=== PATIENT | male | born 1955 | race Two or more races ===

== ENCOUNTER 2019-03-13 08:56 | Emergency (ER) | payer MEDICAID ==
[~2019-03-13] VITALS: Ht 165.1 cm; Wt 90.3 kg
[2019-03-13] MEDS ORDERED: IV NS 0.9% 1,000 ML BAG IV ONE (09:00)
--- NOTE | 2019-03-13 09:05 | NUR ---
[id number], FROM [facility], HAD SEIZURE FOR 20 MINS, NO INJURY. SEIZURE PRECAUTION [id number], SIDERAILS PADDED. PATIENT POST-ICTAL. EYES OPEN, NON-VERBAL, UNABLE TO ANSWER QUESTIONS AT THIS TIME. UNSURE OF BASELINE MENTATION. CHANGED PATIENT INTO GOWN, ATTACHED TO THE CAN OPERATOR. VSS AT THIS TIME.
[2019-03-13] MEDS ORDERED: LORAZEPAM INJ 2 MG/ML VIAL ONE (09:13)
--- NOTE | 2019-03-13 09:15 | NUR ---
PT ACTIVELY SEIZING, ERMD AWARE. ATIVAN 2MG IVP GIVEN PER ERMD VERBAL ORDER.
[2019-03-13 09:19] LABS: BASOPHILS % (AUTO) 0.3 % (0.0-2.0); EOSINOPHILS % (AUTO) 0.9 % (0.0-6.0); HEMATOCRIT 50 % (39-51); HEMOGLOBIN 17.3 g/dL (13.5-17.5); LYMPHOCYTES # (AUTO) 1.5 /CMM (0.8-4.8); LYMPHOCYTES % (AUTO) 16.8 % (20.0-44.0); MEAN CORPUSCULAR HGB CONC 35 g/dl (31.0-36.0); MEAN CORPUSCULAR VOLUME 97 fL (80-96); MONOCYTES # (AUTO) 0.6 /CMM (0.1-1.30); MONOCYTES % (AUTO) 7.2 % (2.0-12.0); NEUTROPHILS # (AUTO) 6.5 /CMM (1.8-8.9); NEUTROPHILS % (AUTO) 74.8 % (43.0-81.0); PLATELET COUNT (AUTO) 146 /CMM (150-450); RED BLOOD CELL COUNT(AUTO) 5.19 MIL/uL (4.5-6.0); WHITE BLOOD COUNT (AUTO) 8.7 K/uL (4.3-11.0)
[2019-03-13 09:25] LABS: CALCIUM, SERUM 8.9 mg/dL (8.5-10.1); CARBON DIOXIDE 26 mmol/L (21-32); CHLORIDE 105 mmol/L (98-107); CREATININE 1.1 mg/dL (0.6-1.3); GLUCOSE 150 mg/dL (74-106); POTASSIUM 3.6 mmol/L (3.5-5.1); SODIUM SERUM 141 mmol/L (136-145); UREA NITROGEN, BLOOD 11 mg/dL (7-18)
[2019-03-13] MEDS ORDERED: LORAZEPAM INJ 2 MG/ML VIAL IV ONE (09:30)
[2019-03-13 09:31] LABS: ALANINE AMINOTRANSFERASE 66 U/L (12-78); ALBUMIN 3.4 g/dL (3.4-5.0); ALCOHOL, BLOOD < 3 mg/dL (0-0); ALKALINE PHOSPHATASE 157 U/L (46-116); ASPARTATE AMINOTRANSFERASE 53 U/L (15-37); BILIRUBIN,DIRECT 0.2 mg/dL (0.0-0.2); BILIRUBIN,TOTAL 0.7 mg/dL (0.2-1.0); TOTAL PROTEIN, SERUM 8.5 g/dL (6.4-8.2)
--- NOTE | 2019-03-13 09:38 | NUR ---
patient came back from CT.
--- NOTE | 2019-03-13 09:56 | NUR ---
Patient resting, no distress noted, vitals stable. Responsive to stimuli.
[2019-03-13] MEDS ORDERED: LEVETIRACETAM (500MG) 1,000 MG in IV NS 0.9% 100 ML IV SCH (10:00)
--- NOTE | 2019-03-13 11:27 | NUR ---
[facility] TRANSPORTATION ARRANGED TO [address] [place] [id number] ETA: 1230
--- NOTE | 2019-03-13 12:57 | NUR ---
PATIENT RESPONSIVE TO VERBAL AND TACTILE STIMULI. VITALS STABLE. NO DISTRESS NOTED. NO SHORTNESS OF BREATH. ON O2 AT 3LPM VIA NC. NEEDS ATTENDED. REPORT GIVEN TO CHANG AT BOARD AND CARE, AND TO SILVER WRAPPER. Patient discharged to board and care in stable condition. Written and verbal after care instructions given to EMT and verbalizes understanding of instruction.
[2019-03-13 12:58] VITALS: BP 143/73
[2019-03-14] MEDS ORDERED: LEVE1000 PO (20:35)
[2019-03-14] MEDS ORDERED: PHEN100C4 PO (20:35)
[2019-03-14] MEDS ORDERED: CLON0.5T12 PO (20:35)
[2019-03-14] MEDS ORDERED: GABA-534 PO (20:35)
[2019-03-14] MEDS ORDERED: ROSU5TAB PO (20:35)
[2019-03-14] MEDS ORDERED: CHOL200026 PO (20:35)
[2019-03-14] MEDS ORDERED: MULT-1201 PO (20:35)
[2019-03-14] MEDS ORDERED: LEVETIRACETAM (500MG) 500 MG/5 ML VIAL IV ONE (22:50)
== END 2019-03-13 12:59 | disposition home or self-care (01) ==
LOC: ER 09:00
DX: G40.909 Epilepsy, unspecified, not intractable, without status epilepticus (principal); R00.0 Tachycardia, unspecified
CPT/HCPCS: 36415; 70450; 71045; 80048; 80076; 80305; 80307; 82962; 85025; 85730; 93005; 96365; 96375; 99284; J1953; J2060; J7030 ×2; G0480

== ENCOUNTER 2019-03-14 16:41 | Inpatient (IN) | payer MEDICAID ==
[~2019-03-14] VITALS: Ht 165.1 cm; Wt 90.0 kg
--- NOTE | 2019-03-14 16:45 | NUR ---
BIB FROM [facility], "BREATHING PATTERN IS DIFFERENT" PER STAFF SEEN HERE YESTERDAY FOR SZ. PATIENT ATTACHED TO THE MONITOR. NO DISTRESS NOTED. BREATHING EVEN AND UNLABORED, NO SOB NOTED, ON O2 AT 2LPM VIA NC WITH SPO2 OF 96%. CHANGED INTO GOWN.
[2019-03-14 17:16] LABS: BASOPHILS # (AUTO) 0.1 /CMM (0.0-0.2); BASOPHILS % (AUTO) 0.8 % (0.0-2.0); EOSINOPHILS % (AUTO) 2.1 % (0.0-6.0); HEMATOCRIT 47 % (39-51); HEMOGLOBIN 16.5 g/dL (13.5-17.5); LYMPHOCYTES # (AUTO) 2.1 /CMM (0.8-4.8); LYMPHOCYTES % (AUTO) 24.5 % (20.0-44.0); MEAN CORPUSCULAR HGB CONC 35 g/dl (31.0-36.0); MEAN CORPUSCULAR VOLUME 97 fL (80-96); MONOCYTES # (AUTO) 0.7 /CMM (0.1-1.30); MONOCYTES % (AUTO) 7.8 % (2.0-12.0); NEUTROPHILS # (AUTO) 5.6 /CMM (1.8-8.9); NEUTROPHILS % (AUTO) 64.8 % (43.0-81.0); PLATELET COUNT (AUTO) 145 /CMM (150-450); WHITE BLOOD COUNT (AUTO) 8.7 K/uL (4.3-11.0)
[2019-03-14 17:28] LABS: CALCIUM, SERUM 8.7 mg/dL (8.5-10.1); CARBON DIOXIDE 26 mmol/L (21-32); CHLORIDE 104 mmol/L (98-107); CREATININE 0.9 mg/dL (0.6-1.3); GLUCOSE 138 mg/dL (74-106); POTASSIUM 3.2 mmol/L (3.5-5.1); SODIUM SERUM 140 mmol/L (136-145); UREA NITROGEN, BLOOD 9 mg/dL (7-18)
[2019-03-14 17:30] LABS: APPEARANCE,URINE Clear (CLEAR); BILIRUBIN,URINE SMALL (NEGATIVE); BLOOD, URINE Trace-intact Ery/uL (NEGATIVE); COLOR,URINE Yellow (YELLOW); KETONES,URINE 15 (NEGATIVE); LEUKOCYTE ESTERASE ,URINE Negative (NEGATIVE); NITRITE, URINE Negative (NEGATIVE); PH,URINE 6.5 (5.0-8.0); PROTEIN,URINE 30 mg/dl (NEGATIVE); UGLUCOSE Negative (NEGATIVE)
[2019-03-14 17:40] LABS: BACTERIA,URINE Rare /HPF (None Seen); RBC,URINE 2-3/HPF /HPF (0-2); SQUAMOUS EPITHELIAL CELL,UR Rare /HPF (None Seen); URINE AMORPHOUS URATE Few /HPF (None Seen); WBC,URINE 0-2 /HPF (0-3)
[2019-03-14 17:42] LABS: ALANINE AMINOTRANSFERASE 85 U/L (12-78); ALBUMIN 3.1 g/dL (3.4-5.0); ALCOHOL, BLOOD < 5 mg/dL (0-0); ALKALINE PHOSPHATASE 141 U/L (46-116); ASPARTATE AMINOTRANSFERASE 67 U/L (15-37); BILIRUBIN,DIRECT 0.2 mg/dL (0.0-0.2); BILIRUBIN,TOTAL 0.6 mg/dL (0.2-1.0); TOTAL PROTEIN, SERUM 8.3 g/dL (6.4-8.2)
[2019-03-14 18:17] LABS: SERUM AMMONIA 42 umol/L (11-32)
[2019-03-14 18:19] LABS: THYROID STIMULATING HORMONE 3.335 uIU/mL (0.358-3.74)
--- NOTE | 2019-03-14 18:36 | NUR ---
CALLED [facility] AND SPOKE WITH CHANG, PER CHANG, PATIENT'S BASELINE WAS HE USED TO BE VERBALLY RESPONSIVE, ABLE TO STAND AND TRANSFER HIMSELF TO A WHEELCHAIR, BUT UNABLE TO AMBULATE.
--- NOTE | 2019-03-14 18:40 | NUR ---
REQUESTED MEDSURG BED FROM NURSING SUP
--- NOTE | 2019-03-14 19:05 | NUR ---
ENDORSED TO VIVIAN PERALES FOR ALEXA.
--- NOTE | 2019-03-14 19:17 | NUR ---
RESTING IN BED AWAKE. NON- VERBAL , UNABLE TO MAKE HIS NEEDS KNOWN, NO S/S OF DISTRESS. WILL CONT TO MONITOR ,
--- NOTE | 2019-03-14 19:31 | NUR ---
117-2 [facility]
--- NOTE | 2019-03-14 19:54 | NUR ---
REPORT GIVEN TO INDRE ON FIRST FLOOR
[2019-03-14 20:00] VITALS: BP 132/76
[2019-03-14 20:15] VITALS: BP 132/76
--- NOTE | 2019-03-14 20:15 | NUR ---
PT WAS TRANSFERRED TO [facility] IN STABLE CONDITION
--- NOTE | 2019-03-14 20:15 | NUR ---
MS/RN NOTES 63 YEARS OLD MALE PATIENT ADMITTED TO THE UNIT WITH THE DX OF ACUTE ENCEPHALOPATHY. NO S/S OF ACUTE DISTRESS NOTED UPON ADMISSION. RESPIRATION EVEN AND UNLABORED. NO SHORTNESS OF BREATH NOTED. PATIENT ALERT AND ORIENTED X1. NO S/S OF PAIN OR DISCOMFORT NOTED AT THIS TIME. PATIENT ON O2 2LPM VIA NASAL CANULA, SATURATING 95%. BODY ASSESSMENT DONE PROTOCOL. RIGHT FOREARM 20 GAUGE NOTED WITH NO S/S OF INFECTION, INFILTRATION. FLUSHED WITH NORMAL SALINE AT THIS TIME. HOB KEPT ELEVATED. SAFETY MAINTAINED, BED AT THE LOWEST LOCKED, POSITION, CALL LIGHT WITHIN REACH. WILL CONTINUE TO MONITOR PATIENT PER PLAN OF CARE.
[2019-03-14] MEDS ORDERED: HYDROCODONE/APAP 5/325MG 1 EACH TABLET PO PRN (20:30)
[2019-03-14] MEDS ORDERED: ACETAMINOPHEN 325 MG TABLET PO PRN (20:30)
[2019-03-14] MEDS ORDERED: ZOLPIDEM TARTRATE 5 MG TABLET PO PRN (20:30)
[2019-03-14] MEDS ORDERED: MAGNESIUM HYDROXIDE 30 ML UDC PO PRN (20:30)
[2019-03-14] MEDS ORDERED: MAG HYDROX/AL HYDROX/SIMETH 30 ML UDC PO PRN (20:30)
[2019-03-14] MEDS ORDERED: POTASSIUM CHLORIDE 20 MEQ TAB.PRT.SR PO ONE (20:30)
[2019-03-14] MEDS ORDERED: Z GUARD REMEDY 2 OZ OINT TP PRN (20:30)
[2019-03-14] MEDS ORDERED: ONDANSETRON HCL/PF 4 MG/2 ML VIAL IVP PRN (20:30)
[2019-03-14] MEDS ORDERED: CLON0.5T12 PO (20:35)
[2019-03-14] MEDS ORDERED: MULT-1201 PO (20:35)
[2019-03-14] MEDS ORDERED: GABA-534 PO (20:35)
[2019-03-14] MEDS ORDERED: CHOL200026 PO (20:35)
[2019-03-14] MEDS ORDERED: ROSU5TAB PO (20:35)
[2019-03-14] MEDS ORDERED: LEVE1000 PO (20:35)
[2019-03-14] MEDS ORDERED: PHEN100C4 PO (20:35)
[2019-03-14] MEDS ORDERED: LEVETIRACETAM (250 MG) 250 MG TABLET PO SCH (21:00)
--- NOTE | 2019-03-14 21:02 | NUR ---
CALLED DR BARNETT TO RE-VERIFY THE PO ORDERED, AND CHANGED THEM TO IV ROUTE ORDERED, BECAUSE PATIENT IS NPO AT THIS TIME. PER DR BARNETT, SHE WILL BE COMING SOON TO ASSESS THE PATIENT
[2019-03-14] MEDS ORDERED: POTASSIUM CHLORIDE 10 MEQ/50 ML PREMIXED IVPB FOR PERIPHERAL LINE IV ONE ×2 (21:30→22:30)
[2019-03-14] MEDS: LEVETIRACETAM (500MG) 1,000 MG in IV NS 0.9% 100 ML IV SCH (21:30)
--- NOTE | 2019-03-14 21:30 | NUR ---
PATIENT SEEN AND EXAMINED BY DR BARNETT AT THIS TIME WITH NNO.
[2019-03-14] MEDS ORDERED: ATORVASTATIN 10 MG TABLET PO SCH (22:00)
[2019-03-14] MEDS ORDERED: PHENYTOIN SUSP UDC 100 MG/4 ML UDC PO SCH (22:00)
[2019-03-14] MEDS ORDERED: PHENYTOIN EXTENDED RELEASE 100 MG CAPSULE PO SCH (22:00)
[2019-03-14] MEDS: IV D5/0.45 NACL 1,000 ML IV PRN (22:35)
[2019-03-15] VITALS: BP 132/76
[2019-03-15 04:00] VITALS: BP 127/80
--- NOTE | 2019-03-15 06:57 | NUR ---
MS/RN NOTES: PATIENT IN BED, RESTING COMFORTABLY AT THIS TIME. NO S/S OF ACUTE DISTRESS NOTED, RESPIRATION EVEN AND UNLABORED. NO SOB NOTED. NO S/S OF PAIN NOTED AT THIS TIME. ALL DUE MEDS GIVEN ORDERED. PATIENT TOLERATED WELL. SAFETY MAINTAINED, BED AT THE LOWEST LOCKED POSITION, WITH SIDE RAILS UP X2. CALL LIGHT WITHIN REACH. WILL ENDORSE TO AM SHIFT NURSE FOR ALEXA.
[2019-03-15 07:00] LABS: PHENYTOIN (DILANTIN) 2.7 ug/ml (10.0-20.0)
[2019-03-15 07:02] LABS: CALCIUM, SERUM 8.3 mg/dL (8.5-10.1); CREATININE 0.8 mg/dL (0.6-1.3); PHOSPHORUS 2.6 mg/dL (2.5-4.9); POTASSIUM 3.6 mmol/L (3.5-5.1)
[2019-03-15 07:04] LABS: BASOPHILS % (AUTO) 0.6 % (0.0-2.0); EOSINOPHILS % (AUTO) 2.6 % (0.0-6.0); HEMATOCRIT 46 % (39-51); LYMPHOCYTES # (AUTO) 1.6 /CMM (0.8-4.8); LYMPHOCYTES % (AUTO) 22.2 % (20.0-44.0); MEAN CORPUSCULAR HGB CONC 35 g/dl (31.0-36.0); MEAN CORPUSCULAR VOLUME 96 fL (80-96); MONOCYTES # (AUTO) 0.5 /CMM (0.1-1.30); MONOCYTES % (AUTO) 7.1 % (2.0-12.0); NEUTROPHILS % (AUTO) 67.5 % (43.0-81.0); PLATELET COUNT (AUTO) 132 /CMM (150-450); RED BLOOD CELL COUNT(AUTO) 4.81 MIL/uL (4.5-6.0); WHITE BLOOD COUNT (AUTO) 7.3 K/uL (4.3-11.0)
[2019-03-15 07:15] LABS: THYROID STIMULATING HORMONE 3.402 uIU/mL (0.358-3.74)
[2019-03-15] MEDS ORDERED: PANTOPRAZOLE 40 MG TABLET.DR PO SCH (07:30)
--- NOTE | 2019-03-15 07:38 | NUR ---
RN OPENING NOTE PT WAS RECEIVED IN BED AT LOWEST AND LOCKED POSITION WITH SIDE RAILS UP X2, AWAKE AND ALERT BUT NONVERBAL, CURRENTLY NPO, IV IS PATENT AND INTACT WITH IVF RUNNING, AWAITNG NEURO CONSULT, SAFETY PRECAUTIONS IN PLACE, CALL LIGHT WITHIN REACH, WILL MONITOR ACCORDINGLY
[2019-03-15] MEDS: FAMOTIDINE/PF INJ 20 MG/2 ML VIAL IV SCH (07:50)
[2019-03-15] MEDS: LEVETIRACETAM (500MG) 1,000 MG in IV NS 0.9% 100 ML IV SCH ×2 (08:00→20:53)
[2019-03-15 08:32] VITALS: BP 131/98
[2019-03-15] MEDS: IV D5/0.45 NACL 1,000 ML IV PRN ×2 (09:15→23:15)
[2019-03-15 09:30] LABS: ALBUMIN 3.1 g/dL (3.4-5.0); BILIRUBIN,DIRECT 0.1 mg/dL (0.0-0.2); BILIRUBIN,TOTAL 0.7 mg/dL (0.2-1.0); TOTAL PROTEIN, SERUM 7.9 g/dL (6.4-8.2)
[2019-03-15] MEDS: TOBRAMYCIN/DEXAMETH OPHTH DORPS 2.5 ML BOTTLE EACHEYE SCH ×3 (10:00→17:09)
[2019-03-15] MEDS ORDERED: LACTULOSE 10 G/15 ML UDC (PYXIS) PO PRN (10:00)
[2019-03-15] MEDS: LORAZEPAM INJ 2 MG/ML VIAL IV PRN (13:08)
--- NOTE | 2019-03-15 14:36 | NUR ---
RN NOTE PHARMACY CALLED AT THIS TIME REGARDING TOBRAMYCIN EYE DROPS, AWAITING FOR MED TO BE BROUGHT TO THE FLOOR
[2019-03-15 16:14] VITALS: BP 129/77
--- NOTE | 2019-03-15 17:18 | NUR ---
RN NOTE PHARMACY CALLED REGARDING TOPRADEX EYE DROPS, INFORMED THAT THEY DO NOT HAVE THEM IN STOCK BUT THAT THEY DO HAVE PLAIN TOBRAMYCIN AND GENTAMYCIN EYE DROPS. WAS PAGED AND MADE AWARE AND ORDERED JUST REGULAR TOBRAMYCIN EYE DROPS AT THIS TIME. PHARMACY INFORMED OF CHANGE
[2019-03-15] MEDS: TOBRAMYCIN OPHTH 5ML 5 ML BOTTLE EACHEYE SCH ×2 (17:19→20:54)
--- NOTE | 2019-03-15 18:30 | NUR ---
RN CLOSING NOTE PT IN BED AT LOWEST AND LOCKED POSITION WITH SIDE RAILS UP X2, AWAKE AND ALERT BUT TRIES TO MOUTH WORDS, CURRENTLY NPO, IV IS PATENT AND INTACT WITH IVF RUNNING, SAFETY PRECAUTIONS IN PLACE, CALL LIGHT WITHIN REACH, ALL NEEDS ATTENDED TO, WILL ENDORSE TO NIGHT RN FOR ALEXA
--- NOTE | 2019-03-15 19:20 | NUR ---
MS RN NOTE: RECEIVED PT ON BED AWAKE, ABLE TO ANSWER YES OR NO QUESTIONS BY NODDING. NO APPARENT DISTRESS NOTED. NO FACIAL GRIMACING OR ANY SIGNS OF PAIN NOTED. ON 2LPM NASAL CANNULA, NO SOB NOTED. IV ON RIGHT HAND #24 AND RIGHT FOREARM #20 INTACT AND PATENT, FLUSHING WELL. KEPT CLEAN, DRY AND COMFORTABLE. SAFETY AND FALL PRECAUTIONS OBSERVED AND MAINTAINED. WILL CONTINUE TO MONITOR PT.
[2019-03-15] MEDS ORDERED: PHENYTOIN SODIUM IV 50 MG/ML VIAL IV SCH (19:30)
[2019-03-15 20:00] VITALS: BP 136/84
--- NOTE | 2019-03-15 20:49 | NUR ---
MS RN NOTE: CLARIFIED TO NEUROLOGIST THE NEW MED ORDER (DILANTIN 1000MG IV), PER NEURO DILANTIN LEVEL IS LOW AND WANTED TO BE ON THERAPEUTIC LEVEL. PHARMACY AWARE AND WAS TOLD OK TO GIVE DILANTIN AND KEPPRA. NO SEIZURE NOTED AT THIS TIME. WILL CONTINUE TO MONITOR PT.
[2019-03-15] MEDS ORDERED: phenytoin SODIUM IV 1,000 MG in IV NS 0.9% 100 ML IV ONE (21:00)
[2019-03-16] MEDS: TOBRAMYCIN OPHTH 5ML 5 ML BOTTLE EACHEYE SCH ×6 (01:23→21:58)
[2019-03-16 04:00] VITALS: BP 121/71
[2019-03-16] MEDS: PHENYTOIN EXTENDED RELEASE 100 MG CAPSULE PO SCH ×3 (04:55→12:40)
--- NOTE | 2019-03-16 06:52 | NUR ---
MS RN NOTE: NO CHANGES NOTED THROUGHOUT THE SHIFT. NO APPARENT DISTRESS NOTED. NO SEIZURES NOTED. NO FACIAL GRIMACING OR ANY SIGNS OF PAIN NOTED. ON 2LPM NASAL CANNULA, NO SOB NOTED, SATURATING WELL. KEPT CLEAN, DRY AND COMFORTABLE. SAFETY AND FALL PRECAUTIONS OBSERVED AND MAINTAINED. WILL ENDORSE TO DAY SHIFT RN FOR CONTINUITY OF CARE.
--- NOTE | 2019-03-16 07:45 | NUR ---
RN OPENING NOTE RECEIVED REPORT AT BED SIDE. PT IS RESTING COMFORTABLY. AWAKE AND ALERT BUT NONVERBAL. ON NC 2L. NO SOB NOTED. NO SIGN OF RESPIRATORY DISTRESS NOTED AT THIS TIME. NPO. R HAND #24 IV SL, PATENT, INTACT AND FLUSHED WELL. RFA #20 D5 1/2 NS RUNNING AT 75 ML/HR. SAFETY MEASURES IN PLACE. BED AT LOWEST AND LOCKED POSITION WITH SIDE RAILS UP X2, CALL LIGHT WITHIN REACH, WILL MONITOR CLOSELY.
[2019-03-16 08:00] VITALS: BP_SYST 130; BP_SYST 132; BP_DIAS 63; BP_DIAS 67
[2019-03-16] MEDS: FAMOTIDINE/PF INJ 20 MG/2 ML VIAL IV SCH (09:03)
[2019-03-16] MEDS: LEVETIRACETAM (500MG) 1,000 MG in IV NS 0.9% 100 ML IV SCH ×2 (09:43→20:42)
[2019-03-16] MEDS: IV D5/0.45 NACL 1,000 ML IV PRN (14:01)
--- NOTE | 2019-03-16 15:19 | NUR ---
RN NOTE BROTHER AT BEDSIDE, UPDATED ABOUT THE PATIENT'S CONDITION AT THIS TIME. DR FINN ORDERED AN EEG TO BE DONE TODAY. JOINT MACHINE OPERATOR IS AT BEDSIDE AT THIS TIME.
[2019-03-16 16:00] VITALS: BP_SYST 132; BP_SYST 137; BP_DIAS 67; BP_DIAS 76
[2019-03-16] MEDS ORDERED: PHARMACY TO CHANGE PO MEDS TO GT/NG IV PRN (17:30)
--- NOTE | 2019-03-16 18:14 | NUR ---
RN NOTE PER MD, CHANGE ALL PO MEDS TO IV. PHARMACY MADE AWARE. ALL CHANGES HAS BEEN MADE
--- NOTE | 2019-03-16 19:30 | NUR ---
MS RN NOTE: RECEIVED PT ON BED ASLEEP BUT AROUSES EASILY TO VERBAL AND TACTILE STIMULI. NO APPARENT DISTRESS NOTED. NO FACIAL GRIMACING OR ANY SIGNS OF PAIN NOTED. ON 2LPM NASAL CANNULA, NO SOB NOTED. IV ON RIGHT HAND #24 AND RIGHT FOREARM #20 INTACT AND PATENT, FLUSHING WELL. KEPT CLEAN, DRY AND COMFORTABLE. SAFETY AND FALL PRECAUTIONS OBSERVED AND MAINTAINED. WILL CONTINUE TO MONITOR PT.
--- NOTE | 2019-03-16 19:41 | NUR ---
MS RN CLOSING NOTES: PATIENT IN BED, RESTING COMFORTABLY AT THIS TIME. AWAKE, NONVERBAL, A/OX1. NO S/S OF SOB OR ACUTE RESPIRATORY OR CARDIAC DISTRESS NOTED, RESPIRATION EVEN AND UNLABORED. NO S/S OF PAIN NOTED AT THIS TIME. NPO. HAS CHANGED ALL THE PO MEDS TO IV MEDS. SAFETY MAINTAINED, BED AT THE LOWEST LOCKED POSITION, WITH SIDE RAILS UP X2. CALL LIGHT WITHIN REACH. BED ALARM ON. WILL ENDORSE TO AM SHIFT NURSE FOR ALEXA.
[2019-03-16 20:00] VITALS: BP 127/87
[2019-03-16] MEDS: PHENYTOIN SODIUM IV 50 MG/ML VIAL IV SCH (20:42)
[2019-03-17] MEDS: TOBRAMYCIN OPHTH 5ML 5 ML BOTTLE EACHEYE SCH ×6 (01:18→21:26)
[2019-03-17 04:00] VITALS: BP 130/72
[2019-03-17] MEDS: PHENYTOIN SODIUM IV 50 MG/ML VIAL IV SCH ×3 (05:04→21:07)
[2019-03-17] MEDS: IV D5/0.45 NACL 1,000 ML IV PRN ×2 (06:36→21:04)
--- NOTE | 2019-03-17 06:58 | NUR ---
MS RN NOTE: NO CHANGES NOTED THROUGHOUT THE SHIFT. NO ACUTE DISTRESS NOTED. NO SEIZURES NOTED. NO FACIAL GRIMACING OR ANY SIGNS OF PAIN NOTED. ON 2LPM NASAL CANNULA, NO SOB NOTED, SATURATING WELL. KEPT CLEAN, DRY AND COMFORTABLE. SAFETY AND FALL PRECAUTIONS OBSERVED AND MAINTAINED. WILL ENDORSE TO DAY SHIFT RN FOR CONTINUITY OF CARE.
--- NOTE | 2019-03-17 07:05 | NUR ---
MS RN OPENING NOTES RECEIVED PT LYING ON BED.PT IS AWAKE AND NONVERBAL.ON 2LPM O2 VIA NC CONTINUOUSLY.NO SOB AND ACUTE DISTRESS NOTED.IV LINE IS ON RIGHT HAND G24,SL AND RIGHT FA G20 WITH D5 .45%NS IS RUNNING @75ML/HR.SITE IS CLEAN,DRY AND INTACT.NO INFILTRATION NOTED.BED IS IN LOW POSITION AND LOCKED,CALL LIGHT IS WITHIN REACH.WILL CONTINUE TO MONITOR THE PT CLOSELY.
[2019-03-17 08:00] VITALS: BP 110/64
[2019-03-17] MEDS: FAMOTIDINE/PF INJ 20 MG/2 ML VIAL IV SCH (08:22)
[2019-03-17] MEDS: LEVETIRACETAM (500MG) 1,000 MG in IV NS 0.9% 100 ML IV SCH ×2 (09:17→21:17)
[2019-03-17 16:00] VITALS: BP 121/78
--- NOTE | 2019-03-17 19:02 | NUR ---
MS RN CLOSING NOTES PT IS LYING ON BED WITH O2 2LPM VIA NC CONTINUOUSLY.NO SOB AND ACUTE [id number] NOTED.PT IS MORE ALERT AND AWAKE THAN BEFORE.RIGHT HAND G20 IS PRESENT WITH IV FLUIDS RUNNING.ALL DUE MEDS ARE GIVEN.PT IS CLEAN AND DRY.PT IS STILL ON NPO.NO SIGNIFICANT CHANGES NOTED IN THE SHIFT.WILL ENDORSE TO TINNING MACHINE SET UP OPERATOR RN FOR ALEXA AND PENDING SWALLOW EVALUATION.
--- NOTE | 2019-03-17 19:45 | NUR ---
RN OPENING NOTES RECEIVED PATIENT IN BED ASLEEP, EASILY AROUSABLE TO VOICE AND TOUCH. NO SIGNS OF RESPIRATORY DISTRESS NOTED. NO SIGNS OF SHORTNESS OF BREATH NOTED. NO SIGNS OF FACIAL GRIMACING OR SIGNS OF PAIN NOTED. ON 2LPM OXYGEN VIA NASAL CANNULA, RESPIRATIONS EVEN AND UNLABORED. IV SITE ON RIGHT HAND INTACT AND PATENT WITH IVF RUNNING. SAFETY PRECAUTIONS IMPLEMENTED; CALL LIGHT WITHIN REACH, BED LOWEST POSITION, BED LOCKED, SIDE RAILS UP X2. WILL CONTINUE TO MONITOR PATIENT.
[2019-03-18] VITALS: BP 125/77
[2019-03-18] MEDS: TOBRAMYCIN OPHTH 5ML 5 ML BOTTLE EACHEYE SCH ×6 (01:30→21:40)
[2019-03-18] MEDS: PHENYTOIN SODIUM IV 50 MG/ML VIAL IV SCH ×3 (04:53→21:37)
--- NOTE | 2019-03-18 05:59 | NUR ---
RN NOTES PATIENT TRANSFERRED TO ROOM 119-1.
--- NOTE | 2019-03-18 07:01 | NUR ---
RN CLOSING NOTES NO CHANGES NOTED THROUGHOUT THE SHIFT. PATIENT CURRENTLY ASLEEP, EASILY AROUSABLE TO VOICE AND TOUCH. NO RESPIRATORY DISTRESS NOTED. NO SEIZURES NOTED. NO FACIAL GRIMACING, NO SIGNS OF PAIN OR DISCOMFORT NOTED. PATIENT STABLE. ON 2LPM OXYGEN VIA NASAL CANNULA, NO SOB NOTED, SATURATING WELL. PATIENT KEPT CLEAN, DRY, AND COMFORTABLE. SAFETY PRECAUTIONS IMPLEMENTED; CALL LIGHT WITHIN REACH, BED LOWEST POSITION, BED LOCKED, SIDE RAILS UP X2. WILL ENDORSE TO DAY NURSE FOR CONTINUITY OF CARE.
--- NOTE | 2019-03-18 07:35 | NUR ---
MS/RN OPENING NOTES RECEIVED PATIENT IN BED SLEEPING COMFORTABLY. EASILY AROUSABLE TO TACTILE STIMULI. NO PAIN OR ACUTE DISTRESS AT THIS TIME. RESPIRATION EVEN AND UNLABORED. SKIN IS DRY WARM TO TOUCH. ON 2LPM OXYGEN VIA NASAL CANNULA. TOLERATING WELL. IV SITE ON RIGHT HAND INTACT AND PATENT WITH IVF RUNNING. ALL NEEDS ANTICIPATED. CALL LIGHT WITHIN REACHED. SAFETY MAINTAINED. BED LOCKED AND IN LOWEST POSITION. WILL CONTINUE TO MONITOR CLOSELY.
[2019-03-18] MEDS: FAMOTIDINE/PF INJ 20 MG/2 ML VIAL IV SCH (07:54)
[2019-03-18 08:00] VITALS: BP 114/58
[2019-03-18] MEDS: LEVETIRACETAM (500MG) 1,000 MG in IV NS 0.9% 100 ML IV SCH ×2 (09:21→21:37)
[2019-03-18] MEDS: IV D5/0.45 NACL 1,000 ML IV PRN (11:53)
[2019-03-18 16:00] VITALS: BP 131/69
--- NOTE | 2019-03-18 19:05 | NUR ---
MS/RN CLOSING NOTES PATIENT CONTINUES TO REMAIN IN STABLE CONDITION. PROVIDED COMFORT AND SAFETY THROUGHOUT THE SHIFT. NO PAIN OR ACUTE DISTRESS AT THIS TIME. RESPIRATION EVEN AND UNLABORED. ON 2LPM OXYGEN VIA NASAL CANNULA. TOLERATING WELL. IV SITE ON RIGHT HAND INTACT AND PATENT WITH IVF RUNNING. TOLERATING WELL. ALL NEEDS ANTICIPATED. KEPT CLEAN AND DRY. CALL LIGHT WITHIN REACHED. SAFETY MAINTAINED. BED LOCKED AND IN LOWEST POSITION. ENDORSED TO PM NURSE FOR ALEXA.
--- NOTE | 2019-03-18 19:40 | NUR ---
MS RN NOTES, PATIENT IN BED, AWAKE BUT UNABLE TO VERBALIZE NEEDS, BREATHING EVEN AND UNLABORED, NO SOB/ACUTE DISTRESS NOTED AT THIS TIME, ON 2LPM OXYGEN VIA NASAL CANNULA, WITH OPTIMAL 02 SAT LEVEL, RIGHT FORE ARM IV SITE INTACT AND PATENT, IVF INFUSING WELL AND PATENT TOLERATED WELL, NPO UNTIL SWALLOW EVALUATION DONE, KEPT CLEAN AND DRY, CALL LIGHT WITHIN REACHED, ALL SAFETY , MEASURES IN PLACED, BED LOCKED AND IN LOWEST POSITION, WILL CONTINUE TO MONITOR CLOSELY.
[2019-03-18 20:00] VITALS: BP 125/70
[2019-03-19] MEDS: TOBRAMYCIN OPHTH 5ML 5 ML BOTTLE EACHEYE SCH ×6 (00:20→21:26)
[2019-03-19 04:00] VITALS: BP 123/71
[2019-03-19] MEDS: PHENYTOIN SODIUM IV 50 MG/ML VIAL IV SCH ×3 (05:11→22:38)
[2019-03-19] MEDS: IV D5/0.45 NACL 1,000 ML IV PRN ×2 (05:32→21:37)
--- NOTE | 2019-03-19 06:56 | NUR ---
MS RN NOTES, PATIENT IN BED, WITH EYES OPEN, NONVERBAL ALL THE NIGHT BUT ABLE JUST TO VERBALIZED "OK" BREATHING EVEN AND UNLABORED, NO SOB/ACUTE DISTRESS NOTED AT THIS TIME, RIGHT FORE ARM IV SITE INTACT AND PATENT, IVF INFUSING WELL AND PATENT TOLERATED WELL, CONTINUE NPO UNTIL SWALLOW EVALUATION TODAY, NO SIGNIFICANT CHANGE IN CONDITION DURING THE NIGHT, KEPT CLEAN AND DRY, CALL LIGHT WITHIN REACHED, BED LOCKED AND IN LOWEST POSITION, WILL ENDORSE CONTINUITY OF CARE TO ONCOMING NURSE.
--- NOTE | 2019-03-19 07:50 | NUR ---
MS RN OPENING NOTES RECEIVED REPORT FROM [facility] SHIFT NURSE, PT ASLEEP IN BED, ON 02 VIA NC 2L/MIN, TOLERATING WELL, NO SIGNS OF RESPIRATORY DISTRESS NOTED, RESPIRATIONS EASY AND UNLABORED. SEIZURE PRECAUTIONS IN PLACE, BED IN LOW POSITION, LOCKED, CALL LIGHT WITHIN REACH. RIGHT FOREARM 20G INFUSING D5 1/2 NS AAT 75ML/HR, NO SIGNS OF INFILTRATION NOTED.
[2019-03-19 08:00] VITALS: BP 136/74
[2019-03-19] MEDS: FAMOTIDINE/PF INJ 20 MG/2 ML VIAL IV SCH (08:06)
[2019-03-19] MEDS: LEVETIRACETAM (500MG) 1,000 MG in IV NS 0.9% 100 ML IV SCH ×2 (08:43→21:26)
--- NOTE | 2019-03-19 09:20 | NUR ---
PT PERFORMED SWALLOW EVALUATION- PT FAILED EVAL.
--- NOTE | 2019-03-19 10:45 | NUR ---
RECEIVED ORDER FROM DR. PHILLIP FOR NG TUBE INSERTION AND FEEDING. ORDER PLACED FOR FNS CONSULT FOR FEEDING TYPE. Addendum: 03/20/19 at 0655 by MARSHALL KENNEY RN correction: received order from dr. vasquez
--- NOTE | 2019-03-19 13:30 | NUR ---
ATTEMPTED TO INSERT NG TUBE, UNSUCCESSFUL. WILL ATTEMPT AT A LATER TIME.
[2019-03-19 16:00] VITALS: BP 137/77
[2019-03-19 18:00] VITALS: BP 137/77
[2019-03-19 20:00] VITALS: BP 148/79
[2019-03-19 20:27] VITALS: BP 148/79
--- NOTE | 2019-03-19 20:46 | NUR ---
RN MS INITIAL NOTES RECEIVED REPORT FROM AM RN, PT AWAKE NONVERBAL, ON 02 VIA NC 2L/MIN, TOLERATING WELL, NO SIGNS OF RESPIRATORY DISTRESS NOTED OR PAIN, ST EVAL DONE, FAIL, FOR NGT PLACEMENT PER AM RN, TRIED PLACEMENT X 2 TIMES, UNSUCCESSFUL, WILL TRY PLACEMENT PT GIVEN BREAK, PENDING GTFEED, ALL CURRENT MED ORDERS TO BE HELD. SEIZURE PRECAUTIONS IN PLACE, BED IN LOW POSITION, LOCKED, CALL LIGHT WITHIN REACH. RIGHT FOREARM 20G INFUSING D5 1/2 NS AAT 75ML/HR, NO SIGNS OF INFILTRATION NOTED.
[2019-03-19] MEDS ORDERED: PHENYTOIN SODIUM IV 50 MG/ML VIAL ONE (22:34)
[2019-03-20] MEDS: TOBRAMYCIN OPHTH 5ML 5 ML BOTTLE EACHEYE SCH ×6 (01:32→21:19)
[2019-03-20 04:00] VITALS: BP 145/73
[2019-03-20 04:26] VITALS: BP 145/73
[2019-03-20] MEDS ORDERED: PHENYTOIN SODIUM IV 50 MG/ML VIAL ONE (05:24)
[2019-03-20] MEDS: PHENYTOIN SODIUM IV 50 MG/ML VIAL IV SCH ×3 (06:02→21:18)
--- NOTE | 2019-03-20 06:49 | NUR ---
RN MS CLOSING NOTES ENDORSED REPORT FROM AM RN, PT AWAKE NONVERBAL, ON 02 VIA NC 2L/MIN, TOLERATING WELL, NO SIGNS OF RESPIRATORY DISTRESS NOTED OR PAIN, ST EVAL DONE, FAIL, NGT PLACEMENT DONE, XRAY CHEST DONE TUBE IN PLACE, CHARGE TIM AWARE, OKAY TO USE NGT GTFEEDING STARTED, HOB ELEVATED FOR ASP' PRECAUTION . SEIZURE PRECAUTIONS IN PLACE, BED IN LOW POSITION, LOCKED, CALL LIGHT WITHIN REACH. RIGHT FOREARM 20G INFUSING D5 1/2 NS AT 75ML/HR, INFILTRATED, DC LINE, LT WRIST #20G INSERTED, WELL SECURED .
--- NOTE | 2019-03-20 07:30 | NUR ---
MS RN OPENING NOTES RECEIVED REPORT FROM PM NURSE.PT AWAKE NONVERBAL,MAKING SOUNDS. ON 02 VIA NC 2L/MIN, TOLERATING WELL, NO SIGNS OF RESPIRATORY DISTRESS NOTED OR PAIN.OV LINE INTACT AND PATENT WITH IVF ONGOING.SEIZURE PRECAUTIONS IN PLACE, BED IN LOW POSITION, LOCKED, CALL LIGHT WITHIN REACH. BED ALARM ON WITH BILATERAL SOFT RESTRAINT.PATIENT TRYING TO PULL PUT NGTUBE AND REMOVING LINENS AND TUBES.WILL CONTINUE TO MONITOR.
[2019-03-20 08:00] VITALS: BP 129/75
[2019-03-20] MEDS: FAMOTIDINE/PF INJ 20 MG/2 ML VIAL IV SCH (08:08)
[2019-03-20] MEDS: LEVETIRACETAM (500MG) 1,000 MG in IV NS 0.9% 100 ML IV SCH (08:54)
[2019-03-20 12:19] LABS: BASOPHILS % (AUTO) 0.5 % (0.0-2.0); EOSINOPHILS % (AUTO) 4.9 % (0.0-6.0); HEMATOCRIT 47 % (39-51); HEMOGLOBIN 16.2 g/dL (13.5-17.5); LYMPHOCYTES # (AUTO) 1.4 /CMM (0.8-4.8); LYMPHOCYTES % (AUTO) 18.7 % (20.0-44.0); MEAN CORPUSCULAR HGB CONC 35 g/dl (31.0-36.0); MEAN CORPUSCULAR VOLUME 95 fL (80-96); MONOCYTES # (AUTO) 0.5 /CMM (0.1-1.30); MONOCYTES % (AUTO) 6.6 % (2.0-12.0); NEUTROPHILS # (AUTO) 5.1 /CMM (1.8-8.9); NEUTROPHILS % (AUTO) 69.3 % (43.0-81.0); PLATELET COUNT (AUTO) 166 /CMM (150-450); RED BLOOD CELL COUNT(AUTO) 4.93 MIL/uL (4.5-6.0); WHITE BLOOD COUNT (AUTO) 7.4 K/uL (4.3-11.0)
[2019-03-20] MEDS ORDERED: JEVITY 1.2 CAL 1,000 ML BOTTLE GT PRN (12:30)
[2019-03-20] MEDS: IV D5/0.45 NACL 1,000 ML IV PRN (13:24)
[2019-03-20 13:30] LABS: ALBUMIN 2.9 g/dL (3.4-5.0); BILIRUBIN,TOTAL 0.5 mg/dL (0.2-1.0); CALCIUM, SERUM 8.4 mg/dL (8.5-10.1); CREATININE 0.7 mg/dL (0.6-1.3); POTASSIUM 3.4 mmol/L (3.5-5.1); TOTAL PROTEIN, SERUM 7.4 g/dL (6.4-8.2)
[2019-03-20 16:00] VITALS: BP 142/78
--- NOTE | 2019-03-20 17:00 | NUR ---
MS RN NOTE SEEN BY UPDATED ABOUT PATIENT CONDITION AT 1300,MADE AWRAE THAT LABS DONE ON 03/15.GOT NEW ORDER FOR LABS.RELAYED RESULT OF LAB RESULT WITH ABNORMALS.NNO.WILL CONTINUE TO MONITOR.OK FOR K 3.4.PATIENT HAD LESS URINE OUT PUT.BALDER SCAN DONE RETAINING >600ML. MADE AWARE.GOT NEW ORDER FOR F/C.WILL CONTINUE TO MONITOR.
--- NOTE | 2019-03-20 18:19 | NUR ---
MS RN OPENING NOTES RECEIVED REPORT FROM PM NURSE.PT AWAKE NONVERBAL,MAKING SOUNDS. ON VIA NC 2L/MIN, TOLERATING WELL, NO SIGNS OF RESPIRATORY DISTRESS NOTED OR PAIN.OV LINE INTACT AND PATENT WITH IVF ONGOING.SEIZURE PRECAUTIONS IN PLACE, BED IN LOW POSITION, LOCKED, CALL LIGHT WITHIN REACH. BED ALARM ON WITH BILATERAL SOFT RESTRAINT.PATIENT TRYING TO PULL PUT NGTUBE AND REMOVING LINENS AND TUBES.WILL CONTINUE TO MONITOR. Addendum: 03/20/19 at 1822 by HAL DELATORRE RN 0730 AM
--- NOTE | 2019-03-20 19:23 | NUR ---
MS RN CLOSING NOTES PT SLEEPING NONVERBAL.ON 02 VIA NC 2L/MIN, TOLERATING WELL, NO SIGNS OF RESPIRATORY DISTRESS NOTED OR PAIN.IV LINE INTACT AND PATENT WITH IVF ONGOING.SEIZURE PRECAUTIONS IN PLACE, BED IN LOW POSITION, LOCKED, CALL LIGHT WITHIN REACH. BED ALARM ON WITH BILATERAL SOFT RESTRAINT.PATIENT STILL TRYING TO PULL PUT NGTUBE AND REMOVING LINENS AND TUBES IF OUT OF RESTRAINT.ENDORSED TO PM NURSE FOR ALEXA.
--- NOTE | 2019-03-20 20:00 | NUR ---
MS RN INITIAL NOTES RECEIVED REPORT FROM AM NURSE.PT AWAKE NONVERBAL,MAKING SOUNDS. ON 02 VIA NC 2L/MIN, TOLERATING WELL, NO SIGNS OF RESPIRATORY DISTRESS NOTED OR PAIN.IV LINE INTACT AND PATENT WITH IVF ONGOING.SEIZURE PRECAUTIONS IN PLACE, BED IN LOW POSITION, LOCKED, CALL LIGHT WITHIN REACH. BED ALARM ON WITH BILATERAL SOFT RESTRAINT.PATIENT TRYING TO PULL PUT NG TUBE AND REMOVING LINENS AND TUBES.WILL CONTINUE TO MONITOR.
--- NOTE | 2019-03-20 20:44 | NUR ---
ANGELLA MS INITIAL NOTES RECEIVED REPORT FROM AM RN.PT AOX3. ON 02 VIA NC 2L/MIN, TOLERATING WELL, NO SIGNS OF RESPIRATORY DISTRESS NOTED OR PAIN, AMBULATING WITH WALKER IN HALLWAY.IV LINE INTACT AND PATENT WITH IVF ONGOING.SEIZURE PRECAUTIONS IN PLACE, BED IN LOW POSITION, LOCKED, CALL LIGHT WITHIN REACH. BED ALARM ON WITH FOR SAFETY, WILL CONTINUE TO MONITOR. Addendum: 03/20/19 at 2132 by AWILDA BATISTA RN WRONG ENTRY
[2019-03-20] MEDS: LEVETIRACETAM SOL (5 ML) 100 MG/ML UDC NG SCH (21:18)
[2019-03-21] VITALS: BP 137/77
[2019-03-21] MEDS: TOBRAMYCIN OPHTH 5ML 5 ML BOTTLE EACHEYE SCH ×6 (01:41→20:27)
[2019-03-21] MEDS: IV D5/0.45 NACL 1,000 ML IV PRN ×2 (02:23→20:53)
--- NOTE | 2019-03-21 06:23 | NUR ---
MS RN CLOSING NOTES ENDORSED REPORT TO AM NURSE.PT AWAKE NONVERBAL,MAKING SOUNDS. ON 02 VIA NC 2L/MIN, TOLERATING WELL, NO SIGNS OF RESPIRATORY DISTRESS NOTED OR PAIN.IV LINE INTACT AND PATENT WITH IVF ONGOING, NGT FEED WELL SECURED HOB.SEIZURE PRECAUTIONS IN PLACE, BED IN LOW POSITION, LOCKED, CALL LIGHT WITHIN REACH. BED ALARM ON WITH BILATERAL SOFT RESTRAINT.PATIENT TRYING TO PULL PUT NG TUBE AND REMOVING LINENS AND TUBES.WILL CONTINUE TO MONITOR.
[2019-03-21 07:02] LABS: BASOPHILS % (AUTO) 0.5 % (0.0-2.0); HEMATOCRIT 45 % (39-51); HEMOGLOBIN 15.9 g/dL (13.5-17.5); LYMPHOCYTES # (AUTO) 1.6 /CMM (0.8-4.8); LYMPHOCYTES % (AUTO) 21.6 % (20.0-44.0); MEAN CORPUSCULAR HGB CONC 35 g/dl (31.0-36.0); MEAN CORPUSCULAR VOLUME 95 fL (80-96); MONOCYTES # (AUTO) 0.7 /CMM (0.1-1.30); MONOCYTES % (AUTO) 8.8 % (2.0-12.0); NEUTROPHILS # (AUTO) 4.6 /CMM (1.8-8.9); NEUTROPHILS % (AUTO) 62.1 % (43.0-81.0); PLATELET COUNT (AUTO) 141 /CMM (150-450); RED BLOOD CELL COUNT(AUTO) 4.74 MIL/uL (4.5-6.0); WHITE BLOOD COUNT (AUTO) 7.5 K/uL (4.3-11.0)
[2019-03-21 07:11] LABS: CALCIUM, SERUM 8.7 mg/dL (8.5-10.1); CREATININE 0.8 mg/dL (0.6-1.3); POTASSIUM 3.2 mmol/L (3.5-5.1)
[2019-03-21 07:17] LABS: PHENYTOIN (DILANTIN) 6.4 ug/ml (10.0-20.0)
--- NOTE | 2019-03-21 07:26 | NUR ---
MS RN OPENING NOTE PT RECEIVED IN BED, ON ROOM AIR, SATURATING WELL, NO SOB OR ACUTE DISTRESS NOTED. NASAL G-TUBE INTACT AND PATENT INFUSING AT 35 ML/ HR. WOODWARD CATHETER INTACT AND PATENT DRAINING CLEAR YELLOW URINE, 1200CC OVERNIGHT. SAFETY MEASURES IN PLACE. BED IN LOW LOCKED POSITION, CALL LIGHT WITHIN REACH. NO SIGNIFICANT CHANGES OVERNIGHT. PATIENT CLEAN AND DRY. WILL CONTINUE TO MONITOR. Addendum: 03/21/19 at 1316 by CHRISTOPHE JUAREZ RN L HAND IV FOUND INFILTRATED UPON RECEIVNG ENDORSEMENT. L HAND WARMTH AND SWELLING NOTED. IV REMOVED, HAND ELEVATED. WILL CONTINUE TO MONITOR.
[2019-03-21 08:00] VITALS: BP 146/82
[2019-03-21 08:45] VITALS: BP 146/58
[2019-03-21] MEDS: LEVETIRACETAM SOL (5 ML) 100 MG/ML UDC NG SCH ×2 (09:22→20:27)
[2019-03-21] MEDS: FAMOTIDINE (20 MG) 20 MG TABLET NG SCH (09:22)
[2019-03-21] MEDS: PHENYTOIN SODIUM IV 50 MG/ML VIAL IV SCH ×2 (09:58→20:27)
[2019-03-21] MEDS: POTASSIUM CHLORIDE 20 MEQ POWDER PACKET GT SCH ×2 (12:19→13:26)
--- NOTE | 2019-03-21 13:09 | NUR ---
MS RN NOTE PATIENT L HAND IV ACCESS INFILTRATED. NEW R WRIST #20 IV PLACED BY ACCOUNT REVIEW SPECIALIST. MID LINE ORDER WAS PLACED BUT FOUND NOT TO BE NECESSARY.
--- NOTE | 2019-03-21 13:12 | NUR ---
MS RN NOTE PATIENT PARTIALLY FREED HIMSELF FROM RESTRAINTS AND SCRATCHED HIMSELF ON THE FACE. WOUNDS CLEANED IMMEDIATELY. PHOTOS TAKEN AND PLACED IN CHART
[2019-03-21] MEDS: JEVITY 1.2 CAL 1,000 ML BOTTLE GT PRN (15:43)
[2019-03-21 16:00] VITALS: BP 141/70
--- NOTE | 2019-03-21 16:27 | NUR ---
MS RN NOTE LEFT ARM REMAINS SWOLLEN NOTED IN PREVIOUS NOTE. MD NOTIFIED. US OF NOLAN ORDERED TO R/O DVT. WOUND CARE CONSULT ORDERED FOR BLISTERING. SITE CLEAN AND DRY. AWAITING WOUND CARE ORDERS.
--- NOTE | 2019-03-21 19:41 | NUR ---
RN MS OPENING NOTES RECEIVED PT IN BED, AWAKE ALERT ORIENTED X1-2, FOLLOWS WITH EYES, VERBALLY UNRESPONSIVE. BREATHING EVEN AND UNLABORED ON 2L O2 VIA NC. IN NO APPARENT PAIN OR DISCOMFORT AT THE MOMENT. NGT IN PLACE WITH JEVITY @55ML/HR. R WRIST #20G WITH 75ML/HR, PATENT AND FLUSHING. BED IN LOWEST LOCKED POSITION, CALL LIGHT WITH REACH AT ALL TIMES, WILL CONTINUE TO MONITOR FREQUENTLY
--- NOTE | 2019-03-21 19:45 | NUR ---
MS RN CLOSING NOTES PT IN BED AWAKE WITH EYES OPEN. A/O X 1, FOLLOWS WITH EYES, VERBALLY UNRESPONSIVE. NO SOB OR ACUTE DISTRESS NOTED. ON 2L O2 VIA NC. R HAND #20 IV INTACT AND PATENT INFUSING NS @ 75 ML/HR. NGT IN PLACE WITH JEVITY @55ML/HR. SAFETY MEASURES IN PLACE. BED IN LOW LOCKED POSITION, CALL LIGHT WITH REACH AT ALL TIMES, CARE ENDORSED TO MORTICIAN INVESTIGATOR RN.
[2019-03-21 20:00] VITALS: BP 134/70
[2019-03-22] VITALS: BP 141/70
[2019-03-22] MEDS: TOBRAMYCIN OPHTH 5ML 5 ML BOTTLE EACHEYE SCH ×6 (01:38→22:18)
--- NOTE | 2019-03-22 06:07 | NUR ---
RN MS CLOSING NOTES PT REMAINS IN BED, SLEEPING, EASILY AROUSED TO TOUCH, VERBALLY UNRESPONSIVE. BREATHING EVEN AND UNLABORED ON 2L O2 VIA NC. IN NO APPARENT PAIN OR DISCOMFORT AT THE MOMENT. NGT IN PLACE WITH JEVITY @65ML/HR AND TOLERATING, 0 RESIDUAL. R WRIST #20G WITH 75ML/HR, PATENT AND FLUSHING. BED IN LOWEST LOCKED POSITION, CALL LIGHT WITH REACH AT ALL TIMES, WILL ENDORSED TO DAY NURSE FOR ALEXA
--- NOTE | 2019-03-22 06:45 | NUR ---
WOUND CARE CONSULT PATIENT PRESENTS WITH OPEN BLISTERS TO THE LEFT HAND S/P IV INFILTRATION PER NURSING STAFF. PALPABLE RADIAL PULSE NOTED. PLEASE SEE EMERGENCY MEDICAL TECH ASSESSMENT IN [facility] FOR TODAY. TREATMENT RECOMMENDATIONS MADE AND ALL DISCUSSED WITH NURSING AT THE BEDSIDE. ONGOING MONITORING AND TREATMENT. NEGATIVE FOR DVT PER SCANNING. Addendum: 03/22/19 at 0648 by EMILY LANGLEY WNDNU Amended: Links added. Addendum: 03/22/19 at 0739 by EMILY LANGLEY WNCHASITYU RECOMMEND SURGICAL CONSULT FOR EVALUATION OF THE LEFT HAND INFILTRATION SITE. DR JOYCELYN HERNANDEZ HAS BEEN NOTIFIED OF THE CONSULT.
--- NOTE | 2019-03-22 07:20 | NUR ---
RN OPENING NOTES RECEIVED REPORT FROM TOOLING INSPECTOR RN. PT IS IN BED ASLEEP. PT HAS AN NG TUBE RUNNING JEVITY 1.2 AT 65MLS/HR. HOB ELEVATED AND BILATERAL SOFT WRIST RESTRAINTS ON. PT APPEARS TO BE IN NO PAIN OR SOB AT PRESENT MOMENT WILL CONTINUE TO MONITOR. BED IS LOCKED AND IN LOWEST POSITION WITH SIDE RAILS PADDED. WILL CONTINUE TO MONITOR.
[2019-03-22 07:32] LABS: CALCIUM, SERUM 8.9 mg/dL (8.5-10.1); CREATININE 0.7 mg/dL (0.6-1.3); POTASSIUM 3.7 mmol/L (3.5-5.1)
[2019-03-22 07:36] LABS: BASOPHILS % (AUTO) 0.4 % (0.0-2.0); EOSINOPHILS % (AUTO) 4.2 % (0.0-6.0); HEMATOCRIT 46 % (39-51); HEMOGLOBIN 15.8 g/dL (13.5-17.5); LYMPHOCYTES # (AUTO) 1.5 /CMM (0.8-4.8); LYMPHOCYTES % (AUTO) 16.5 % (20.0-44.0); MEAN CORPUSCULAR HGB CONC 35 g/dl (31.0-36.0); MEAN CORPUSCULAR VOLUME 95 fL (80-96); MONOCYTES # (AUTO) 0.7 /CMM (0.1-1.30); MONOCYTES % (AUTO) 7.5 % (2.0-12.0); NEUTROPHILS # (AUTO) 6.5 /CMM (1.8-8.9); NEUTROPHILS % (AUTO) 71.4 % (43.0-81.0); PLATELET COUNT (AUTO) 150 /CMM (150-450); RED BLOOD CELL COUNT(AUTO) 4.84 MIL/uL (4.5-6.0); WHITE BLOOD COUNT (AUTO) 9.1 K/uL (4.3-11.0)
[2019-03-22 08:00] VITALS: BP 162/79
[2019-03-22] MEDS ORDERED: NEOMY SULF/BACITRAC ZN/POLY 15 GM TUBE TP SCH (09:00)
[2019-03-22] MEDS: LEVETIRACETAM SOL (5 ML) 100 MG/ML UDC NG SCH ×2 (10:13→22:05)
[2019-03-22] MEDS: PHENYTOIN SODIUM IV 50 MG/ML VIAL IV SCH ×2 (10:13→22:05)
[2019-03-22] MEDS: FAMOTIDINE (20 MG) 20 MG TABLET NG SCH (10:13)
--- NOTE | 2019-03-22 10:47 | NUR ---
MS NURSE ,Dr Dietrich notified re; PEG placement will call GI consult per Dr.Andornian Larkin was notified at this time waiting for returning call back
[2019-03-22] MEDS: IV D5/0.45 NACL 1,000 ML IV PRN (10:52)
[2019-03-22] MEDS: JEVITY 1.2 CAL 1,000 ML BOTTLE GT PRN (12:26)
[2019-03-22] MEDS: LORAZEPAM INJ 2 MG/ML VIAL IV PRN (15:39)
[2019-03-22 16:00] VITALS: BP 150/72
--- NOTE | 2019-03-22 18:59 | NUR ---
RN CLOSING NOTES REPORT GIVEN TO LINE APPLIANCE ASSEMBLER RN. PT IS A&OX1 ALERT TO TOUCH. DOES NOT OBEY COMMANDS. HAYLIE FRAIRE ROUNDED AND GIVEN BROTHER PHONE NUMBER TO FOLLOW UP WITH PEG PLACEMENT. BILATERAL SOFT WRIST RESTRAINTS ARE ON. REMOVED ONE HAND AND PT WENT IMMEDIATELY FOR NG TUBE AND WAS STOPPED FROM PULLING OUT MEDICAL EQUIPMENT. PT HAS A WOODWARD DRAINING TO GRAVITY. PT SHOWS NO SIGNS OF SOB OR PAIN AT PRESENT MOMENT WILL ENDORSE CONTINUITY OF CARE TO LINE APPLIANCE ASSEMBLER RN.
--- NOTE | 2019-03-22 19:15 | NUR ---
MS RN NOTE PATIENT IN BED A/O X 1. PATIENT NONVERBAL AT THIS TIME RESPONDS TO TOUGH AND NOXIOUS STIMULI. PATIENT UNABLE TO FOLLOW COMMANDS. PATIENT CURRENTLY RESTRAINED WITH BILATERAL SOFT WRIST RESTRAINTS. CIRCULATION PRESENT HANDS WARM TO TOUCH. SAFETY CHECK DONE. PATIENT HAS WOODWARD DRAINING TO GRAVITY PATENT AND INTACT. IV PATENT AND INTACT NO S/S OF INFECTION/INFILTRATION. PATIENT HAS NO S/S OF ACUTE DISTRESS AT THIS TIME. PITTING EDEMA NOTED IN UPPER EXTREMITIES RN WILL CONTINUE TO MONITOR FOR CHANGES. SAFETY/ SEIZURE PRECAUTIONS IN PLACE. HOB SEMI FOLWERS.
[2019-03-22 20:00] VITALS: BP 142/75
[2019-03-23] VITALS: BP 136/70
[2019-03-23] MEDS: TOBRAMYCIN OPHTH 5ML 5 ML BOTTLE EACHEYE SCH ×6 (01:22→22:07)
[2019-03-23] MEDS: IV D5/0.45 NACL 1,000 ML IV PRN (01:32)
[2019-03-23 04:00] VITALS: BP 124/61
[2019-03-23] MEDS: JEVITY 1.2 CAL 1,000 ML BOTTLE GT PRN (05:14)
--- NOTE | 2019-03-23 06:51 | NUR ---
MS RN NOTE PATIENT TOLERATED THE NIGHT WELL. CARE AND SAFETY PRECAUTIONS ADHERED TO . PATIENT RESTRAINTS STILL IN PLACE ORDER RENEWED. PATIENT CIRCULATION PATENT NO S/S OF COMPLICATIONS/ WOUNDS. PATIENT TOLERATED TUBE FEEDING WELL WITH MINIMAL RESIDUAL. NO SEIZURES NOTED THROUGH THE NIGHT. BREATHING REMAINS EVEN AND UNLABORED. IV ACCESS PATENT AND INTACT. ALL CARE GIVEN ORDERED. RN WILL ENDORSE TO AM PLAN OF CARE FOR CONTINUITY.
[2019-03-23 07:19] LABS: BASOPHILS % (AUTO) 0.2 % (0.0-2.0); EOSINOPHILS % (AUTO) 2.8 % (0.0-6.0); HEMATOCRIT 46 % (39-51); HEMOGLOBIN 15.7 g/dL (13.5-17.5); LYMPHOCYTES # (AUTO) 1.2 /CMM (0.8-4.8); LYMPHOCYTES % (AUTO) 8.7 % (20.0-44.0); MEAN CORPUSCULAR HGB CONC 34 g/dl (31.0-36.0); MEAN CORPUSCULAR VOLUME 96 fL (80-96); MONOCYTES # (AUTO) 1.1 /CMM (0.1-1.30); NEUTROPHILS # (AUTO) 11.4 /CMM (1.8-8.9); NEUTROPHILS % (AUTO) 80.3 % (43.0-81.0); PLATELET COUNT (AUTO) 155 /CMM (150-450); RED BLOOD CELL COUNT(AUTO) 4.77 MIL/uL (4.5-6.0); WHITE BLOOD COUNT (AUTO) 14.2 K/uL (4.3-11.0)
[2019-03-23 08:00] VITALS: BP 139/72
[2019-03-23 08:59] LABS: CALCIUM, SERUM 9.1 mg/dL (8.5-10.1); CREATININE 0.9 mg/dL (0.6-1.3); POTASSIUM 3.9 mmol/L (3.5-5.1)
[2019-03-23] MEDS: FAMOTIDINE (20 MG) 20 MG TABLET NG SCH (09:08)
[2019-03-23] MEDS: PHENYTOIN SODIUM IV 50 MG/ML VIAL IV SCH ×2 (09:08→21:13)
[2019-03-23] MEDS: LEVETIRACETAM SOL (5 ML) 100 MG/ML UDC NG SCH ×2 (09:08→21:13)
--- NOTE | 2019-03-23 09:53 | NUR ---
right hand with noticeable swelling, ivf stopped, midline #18 gauge by Midline nurse. IVF continues. unable to follow basic commands- R eye shut, left eye opened, continues with Tobramycin eye drops as ordered. continues with NGT , goal met, 65cc per hour now.
--- NOTE | 2019-03-23 11:24 | NUR ---
MESSAGE LEFT TO SISTER REGARDING CONSENT FOR PEG AWAIT RESPONSE.
--- NOTE | 2019-03-23 11:53 | NUR ---
CONSENT OBTAINED FROM SISTER FOR PEG,GI NOTIFIED.
[2019-03-23 16:00] VITALS: BP 171/78
[2019-03-23 16:12] VITALS: BP 171/78
[2019-03-23 17:52] VITALS: BP 150/88
[2019-03-24] MEDS: TOBRAMYCIN OPHTH 5ML 5 ML BOTTLE EACHEYE SCH ×6 (02:34→20:05)
[2019-03-24] MEDS: IV D5/0.45 NACL 1,000 ML IV PRN (02:40)
[2019-03-24 04:00] VITALS: BP 138/87
[2019-03-24] MEDS: JEVITY 1.2 CAL 1,000 ML BOTTLE GT PRN (06:26)
--- NOTE | 2019-03-24 07:00 | NUR ---
MS RN OPENING NOTES PATIENT IN BED SLEEPING, A&OX1 AROUSABLE TO TOUCH. ON NS 2L SATURATING WELL. BILATERAL SOFT WRIST RESTRAINTS ARE ON. WOODWARD DRAINING TO GRAVITY, CLEAR URINE. NO SIGNS OF RESPIRATORY DISTRESS OR SOB NOTED. NO SIGN OF PAIN NOTED. RIGHT UA IV #20, D5 1/2 NS RUNNING AT 75 ML/HR. NG TUBE RUNNING AT 65 ML/HR. NO SIGH OF INFILTRATION. ALL SAFETY IN PLACE, BED LOW/ LOCKED. CALL LIGHT WITHIN REACH. WILL CONTINUE TO MONITOR.
[2019-03-24 07:22] LABS: CALCIUM, SERUM 9.2 mg/dL (8.5-10.1); CREATININE 0.8 mg/dL (0.6-1.3); POTASSIUM 4.2 mmol/L (3.5-5.1)
--- NOTE | 2019-03-24 07:26 | NUR ---
MS RN OPENING NOTES PATIENT IN BED SLEEPING, A&OX1 ALERT TO TOUCH. DOES NOT OBEY COMMANDS. BILATERAL SOFT WRIST RESTRAINTS ARE ON. REMOVED ONE HAND DUE TO PULLING NASAL TUBE OFF. PT HAS A WOODWARD DRAINING TO GRAVITY. PT SHOWS NO SIGNS OF SOB OR PAIN IV RIGHT HAND #20, NO SIGH OF INFILTRATION. ALL SAFETY IN PLACE, BED LOW/ LOCKED. CALL LIGHT WITHIN REACH. WILL CONTINUE MONITOR
--- NOTE | 2019-03-24 07:37 | NUR ---
MS RN CLOSING NOTES PATIENT IN BED SLEEPING, A&OX1 ALERT TO TOUCH. DOES NOT OBEY COMMANDS. BILATERAL SOFT WRIST RESTRAINTS ARE ON. REMOVED ONE HAND DUE TO PULLING NASAL TUBE OFF. PT HAS A WOODWARD DRAINING TO GRAVITY. PT SHOWS NO SIGNS OF SOB OR PAIN IV RIGHT HAND #20, NO SIGH OF INFILTRATION. ALL SAFETY IN PLACE, BED LOW/ LOCKED. CALL LIGHT WITHIN REACH. WILL ENDORSE TO AM RN FOR ALEXA
[2019-03-24 07:47] LABS: BASOPHILS % (AUTO) 0.2 % (0.0-2.0); EOSINOPHILS % (AUTO) 1.4 % (0.0-6.0); HEMATOCRIT 45 % (39-51); HEMOGLOBIN 15.5 g/dL (13.5-17.5); LYMPHOCYTES # (AUTO) 1.5 /CMM (0.8-4.8); LYMPHOCYTES % (AUTO) 8.4 % (20.0-44.0); MEAN CORPUSCULAR HGB CONC 34 g/dl (31.0-36.0); MEAN CORPUSCULAR VOLUME 97 fL (80-96); MONOCYTES # (AUTO) 1.1 /CMM (0.1-1.30); MONOCYTES % (AUTO) 6.1 % (2.0-12.0); NEUTROPHILS # (AUTO) 14.8 /CMM (1.8-8.9); NEUTROPHILS % (AUTO) 83.9 % (43.0-81.0); PLATELET COUNT (AUTO) 156 /CMM (150-450); RED BLOOD CELL COUNT(AUTO) 4.67 MIL/uL (4.5-6.0); WHITE BLOOD COUNT (AUTO) 17.7 K/uL (4.3-11.0)
[2019-03-24 08:00] VITALS: BP_SYST 130; BP_SYST 133; BP_DIAS 72
--- NOTE | 2019-03-24 10:30 | NUR ---
MS RN NOTE DR SUH AT BEDSIDE AND AWARE ABOUT THE ELEVATED WBC AND GLUCOSE.
[2019-03-24] MEDS: LEVETIRACETAM SOL (5 ML) 100 MG/ML UDC NG SCH ×2 (11:06→20:05)
[2019-03-24] MEDS: FAMOTIDINE (20 MG) 20 MG TABLET NG SCH (11:06)
[2019-03-24] MEDS: PHENYTOIN SODIUM IV 50 MG/ML VIAL IV SCH ×2 (11:17→20:04)
--- NOTE | 2019-03-24 11:45 | NUR ---
JUST NOTED NG TUBE IS OUT. NEW NG TUBE WAS PLACED BY CHARGE NURSE, SOON, IN THE LEFT NOSTRIL. PT TOLERATE THE PROCEDURE WELL. CHEST X-RAY IS PLACED TO CONFIRM THE PLACEMENT. WILL FOLLOW UP.
[2019-03-24 12:26] LABS: APPEARANCE,URINE TURBID (CLEAR); BILIRUBIN,URINE NEGATIVE (NEGATIVE); BLOOD, URINE 2+ Ery/uL (NEGATIVE); COLOR,URINE YELLOW (YELLOW); KETONES,URINE NEGATIVE (NEGATIVE); LEUKOCYTE ESTERASE ,URINE 3+ (NEGATIVE); NITRITE, URINE NEGATIVE (NEGATIVE); PH,URINE 8.5 (5.0-8.0); PROTEIN,URINE 1+ mg/dl (NEGATIVE); UGLUCOSE NEGATIVE (NEGATIVE); UROBILINOGEN,URINE 0.2 EU/dL (0.2)
[2019-03-24 12:43] LABS: BACTERIA,URINE Many /HPF (None Seen); SQUAMOUS EPITHELIAL CELL,UR Few /HPF (None Seen)
[2019-03-24 12:44] LABS: TRIPLE PHOSPHATE CRYSTAL,UR Moderate /HPF (None Seen)
--- NOTE | 2019-03-24 13:00 | NUR ---
MS RN NOTE GOT THE RESULT OF CHEST X-RAY AND THE NG TUBE PLACEMENT WAS CONFIRMED. STARTING TUBE FEEDING AT 25 ML/HR ORDERED.
[2019-03-24 16:00] VITALS: BP 130/68
--- NOTE | 2019-03-24 18:00 | NUR ---
RN MS NOTE NG FEEDING INCREASED TO 35 ML/HR PER ORDER.
--- NOTE | 2019-03-24 19:15 | NUR ---
MS RN NOTES RECEIVED PT ON BED. A/O X1 TRYING TO PULL OUT NGT. ON NASAL CANNULA NO RESPIRATORY DISTRESS NOTED. ON BILATERAL SOFT WRIST RESTRAINTS. IV ACCESS ON RIGHT ARM AND RIGHT UPPER ARM MIDLINE, PATENT AND INTACT WITH NS RUNNING @75CC/HR. WOODWARD CATH DRAINING YELLOW URINE. HEAD OF BED ELEVATED. SIDE RAILS UP X3. BED ALARM NOT WORKING. BED IN LOW POSITION. WILL MONITOR PT CLOSELY.
--- NOTE | 2019-03-24 19:33 | NUR ---
MS RN CLOSING NOTES PATIENT IN BED AWAKE A&OX1, ALERT TO TOUCH. BILATERAL SOFT WRIST RESTRAINTS RENEWED AT 12:00 AND ARE ARE ON. WOODWARD DRAINING TO GRAVITY WITH CLEAR URINE. PT SHOWS NO SIGNS OF RESPIRATORY DISTRESS, SOB OR PAIN AT THIS TIME. ON NC 2L SATURATING WELL. IV RIGHT HAND #20, RUNNING AT 75 ML/HR. ALL SAFETY IN PLACE, BED LOW/ LOCKED. CALL LIGHT WITHIN REACH. SIDE RAILS UPX2. WILL ENDORSE TO NIGHT RN FOR ALEXA
--- NOTE | 2019-03-24 19:58 | NUR ---
MS RN NOTES VERIFIED NGT PLACEMENT BY 2 RN VIA AUSCULATION.
[2019-03-24 20:00] VITALS: BP 142/92
[2019-03-24 20:41] VITALS: BP 142/92
[2019-03-25] MEDS: IV D5/0.45 NACL 1,000 ML IV PRN ×2 (00:02→16:31)
[2019-03-25] MEDS: TOBRAMYCIN OPHTH 5ML 5 ML BOTTLE EACHEYE SCH ×6 (00:56→20:09)
[2019-03-25 04:00] VITALS: BP 120/67
--- NOTE | 2019-03-25 05:20 | NUR ---
MS RN NOTES UNABLE TO WEIGHT PT, BED NOT WORKING.
[2019-03-25 06:37] LABS: CREATININE 0.8 mg/dL (0.6-1.3); POTASSIUM 3.8 mmol/L (3.5-5.1)
[2019-03-25 06:46] LABS: BASOPHILS # (AUTO) 0.1 /CMM (0.0-0.2); BASOPHILS % (AUTO) 0.5 % (0.0-2.0); HEMATOCRIT 44 % (39-51); HEMOGLOBIN 15.1 g/dL (13.5-17.5); LYMPHOCYTES # (AUTO) 1.8 /CMM (0.8-4.8); LYMPHOCYTES % (AUTO) 13.1 % (20.0-44.0); MEAN CORPUSCULAR HGB CONC 35 g/dl (31.0-36.0); MEAN CORPUSCULAR VOLUME 95 fL (80-96); MONOCYTES % (AUTO) 7.1 % (2.0-12.0); NEUTROPHILS # (AUTO) 10.3 /CMM (1.8-8.9); NEUTROPHILS % (AUTO) 76.3 % (43.0-81.0); PLATELET COUNT (AUTO) 159 /CMM (150-450); RED BLOOD CELL COUNT(AUTO) 4.59 MIL/uL (4.5-6.0); WHITE BLOOD COUNT (AUTO) 13.4 K/uL (4.3-11.0)
--- NOTE | 2019-03-25 07:10 | NUR ---
MS RN OPENING NOTES RECEIVED REPORT AT BEDSIDE. PATIENT IN BED SLEEPING, A&OX1 AROUSABLE TO TOUCH. ON NS 2L SATURATING WELL. BILATERAL SOFT WRIST RESTRAINTS ARE ON. WOODWARD DRAINING TO GRAVITY, CLEAR URINE. NO SIGNS OF RESPIRATORY DISTRESS OR SOB NOTED. NO SIGN OF PAIN. RIGHT UA MIDLINE D5 1/2 NS RUNNING AT 75 ML/HR. RFA #20 SL, PATENT, INTACT AND FLUSHED WELL. NG TUBE RUNNING AT 45 ML/HR. ALL SAFETY IN PLACE, BED AT THE LOWEST POSITION AND LOCKED. CALL LIGHT WITHIN REACH. WILL CONTINUE TO MONITOR.
--- NOTE | 2019-03-25 07:21 | NUR ---
MS RN NOTES NO ACUTE CHANGES NOTED DURING THE SHIFT. PROVIDED COMFORT AND SAFETY. ENDORSE TO THE AM NURSE FOR CONTINUITY OF CARE
[2019-03-25] MEDS: LEVETIRACETAM SOL (5 ML) 100 MG/ML UDC NG SCH ×2 (09:51→20:09)
[2019-03-25] MEDS: FAMOTIDINE (20 MG) 20 MG TABLET NG SCH (09:51)
[2019-03-25 12:00] VITALS: BP 113/63
--- NOTE | 2019-03-25 16:00 | NUR ---
RN MS NOTE NG TUBE RATE INCREASED TO 55 ML/HR. PT TOLERATED WELL. NO GASTRIC RESIDUAL NOTED. GOAL IS 65 MH/HR.
--- NOTE | 2019-03-25 19:45 | NUR ---
MS RN CLOSING NOTES PATIENT IN BED AWAKE A&OX1, ALERT TO TOUCH AND NAME. BILATERAL SOFT WRIST RESTRAINTS RENEWED AT 12:00 AND ARE ARE ON. WOODWARD DRAINING TO GRAVITY WITH CLEAR URINE. PT SHOWS NO SIGNS OF RESPIRATORY DISTRESS, SOB OR PAIN AT THIS TIME. ON NC 2L SATURATING WELL. IV RFA #20 SL. KELSEA MIDLINE RUNNING D5 1/2 NS @ 75 ML/HR. ALL SAFETY IN PLACE, BED LOW/ LOCKED. CALL LIGHT WITHIN REACH. SIDE RAILS UPX3. WILL ENDORSE TO NIGHT RN FOR ALEXA
[2019-03-25 20:00] VITALS: BP 126/72
--- NOTE | 2019-03-25 21:34 | NUR ---
MS RN NOTES RECEIVED PT ON BED. A/O X 1. ON NASAL CANNULA 2LPM NO RESPIRATORY DISTRESS NOTED. ON WOODWARD CATH DRAINING YELLOW URINE. ON BILATERAL SOFT WRIST RESTRAINTS. IV ACCESS ON KEL[place] MIDLINE WITH NS @75CC/HR RUNNING WELL. NGT FEEDING RUNNING @ 55 CC/HR NO RESIDUAL NOTED. HEAD OF BED ELEVATED. SIDE RAILS UP. CALL LIGHT WITHIN REACH. BED ALARM ON. WILL CONTINUE TO MONITOR PT CLOSELY.
[2019-03-26] MEDS: TOBRAMYCIN OPHTH 5ML 5 ML BOTTLE EACHEYE SCH ×6 (00:20→20:53)
[2019-03-26 04:00] VITALS: BP 145/77
[2019-03-26] MEDS: IV D5/0.45 NACL 1,000 ML IV PRN (04:32)
--- NOTE | 2019-03-26 06:17 | NUR ---
MS RN NOTES NO ACUTE CHANGES NOTED DURING THE SHIFT. PROVIDED COMFORT AND SAFETY. PT NPO MIDNIGHT. WILL ENDORSE TO THE AM NURSE FOR CONTINUITY OF CARE.
[2019-03-26 06:33] LABS: CALCIUM, SERUM 8.2 mg/dL (8.5-10.1); CREATININE 0.8 mg/dL (0.6-1.3); POTASSIUM 3.7 mmol/L (3.5-5.1)
[2019-03-26 06:47] LABS: BASOPHILS # (AUTO) 0.1 /CMM (0.0-0.2); BASOPHILS % (AUTO) 0.5 % (0.0-2.0); EOSINOPHILS % (AUTO) 4.7 % (0.0-6.0); HEMATOCRIT 43 % (39-51); HEMOGLOBIN 14.8 g/dL (13.5-17.5); LYMPHOCYTES # (AUTO) 1.4 /CMM (0.8-4.8); LYMPHOCYTES % (AUTO) 14.3 % (20.0-44.0); MEAN CORPUSCULAR HGB CONC 35 g/dl (31.0-36.0); MEAN CORPUSCULAR VOLUME 96 fL (80-96); MONOCYTES # (AUTO) 0.9 /CMM (0.1-1.30); MONOCYTES % (AUTO) 8.5 % (2.0-12.0); NEUTROPHILS # (AUTO) 7.2 /CMM (1.8-8.9); PLATELET COUNT (AUTO) 183 /CMM (150-450); RED BLOOD CELL COUNT(AUTO) 4.49 MIL/uL (4.5-6.0)
--- NOTE | 2019-03-26 07:39 | NUR ---
rn notes 0730-patient for GI procedure, report given to OR crew.
[2019-03-26 08:00] VITALS: BP 137/81
[2019-03-26 09:30] VITALS: BP 122/81
[2019-03-26] MEDS: LEVETIRACETAM SOL (5 ML) 100 MG/ML UDC NG SCH ×2 (10:50→20:52)
[2019-03-26] MEDS: FAMOTIDINE (20 MG) 20 MG TABLET NG SCH (11:40)
[2019-03-26 12:00] VITALS: BP 122/81
[2019-03-26 16:00] VITALS: BP 138/75
[2019-03-26] MEDS: JEVITY 1.2 CAL 1,000 ML BOTTLE GT PRN (16:45)
--- NOTE | 2019-03-26 18:11 | NUR ---
RN NOTES 1000-PATIENT S/P PEG PLACEMENT. NO SIGN OF PAIN NOTED.OPENS EYES TO VOICE, 1300-TUBE FEEDINGS ONGOING ORDERED. PATIENT NO SIGN OF PAIN. POSITIONED FOR COMFORT AND SAFETY 1700-BAO( FACILITY REP) CALLED FOR UPDATE, HE ALSO SPOKE TO OFFBEARER 1800-PATIENT NO SIGN OF PAIN.OPENED EYES WHEN NAME CALLED.
--- NOTE | 2019-03-26 19:43 | NUR ---
RN NOTES 1909-PATIENT RESTING, NO SIGN OF PAIN, REPORT GIVEN TO RN FOR FURTHER CARE
[2019-03-26 20:00] VITALS: BP 165/76
--- NOTE | 2019-03-26 20:31 | NUR ---
MS RN OPENING NOTES PATIENT IN BED SLEEPING, A&OX1 ALERT TO TOUCH. DOES NOT OBEY COMMANDS. BILATERAL SOFT WRIST RESTRAINTS ARE ON. PT HAS A WOODWARD DRAINING TO GRAVITY. PT SHOWS NO SIGNS OF SOB OR PAIN IV RIGHT HAND #20, D5 1/2NS@75ML/HR, NO SIGH OF INFILTRATION. TUBE FEEDING 30ML/HR ONGOING, GOAL 60ML/HR. ALL SAFETY IN PLACE, BED LOW/ LOCKED. CALL LIGHT WITHIN REACH. WILL CONTINUE MONITOR
--- NOTE | 2019-03-26 22:00 | NUR ---
MS RN NOTES, RASED FEEDING FROM 30 TO 40 ML/HR, GOAL IS 60ML/HR. WILL CONTINUE TO MONITOR
[2019-03-27] MEDS: TOBRAMYCIN OPHTH 5ML 5 ML BOTTLE EACHEYE SCH ×4 (01:23→14:41)
[2019-03-27] MEDS: IV D5/0.45 NACL 1,000 ML IV PRN (01:43)
--- NOTE | 2019-03-27 02:00 | NUR ---
MS RN NOTES RAISED G TUBE TO 50ML/HR TOLERATED WELL. WILL CONTINUE TO MONITOR.
[2019-03-27 04:00] VITALS: BP 144/64
--- NOTE | 2019-03-27 07:00 | NUR ---
MS RN CLOSING NOTES PATIENT IN BED SLEEPING, A&OX1 ALERT TO TOUCH. DOES NOT OBEY COMMANDS. BILATERAL SOFT WRIST RESTRAINTS ARE ON. PT HAS A WOODWARD DRAINING TO GRAVITY. PT SHOWS NO SIGNS OF SOB OR PAIN IV RIGHT HAND #20, D5 1/2NS@75ML/HR, NO SIGH OF INFILTRATION. TUBE FEEDING 60ML/HR ONGOING. ALL SAFETY IN PLACE, BED LOW/ LOCKED. CALL LIGHT WITHIN REACH. WILL ENDORSE TO AM RN FOR ALEXA.
[2019-03-27 07:50] LABS: BASOPHILS # (AUTO) 0.1 /CMM (0.0-0.2); BASOPHILS % (AUTO) 0.7 % (0.0-2.0); EOSINOPHILS % (AUTO) 3.8 % (0.0-6.0); HEMATOCRIT 41 % (39-51); HEMOGLOBIN 14.5 g/dL (13.5-17.5); LYMPHOCYTES # (AUTO) 1.8 /CMM (0.8-4.8); LYMPHOCYTES % (AUTO) 21.6 % (20.0-44.0); MEAN CORPUSCULAR HGB CONC 35 g/dl (31.0-36.0); MEAN CORPUSCULAR VOLUME 95 fL (80-96); MONOCYTES # (AUTO) 0.7 /CMM (0.1-1.30); MONOCYTES % (AUTO) 7.9 % (2.0-12.0); NEUTROPHILS # (AUTO) 5.6 /CMM (1.8-8.9); PLATELET COUNT (AUTO) 195 /CMM (150-450); RED BLOOD CELL COUNT(AUTO) 4.34 MIL/uL (4.5-6.0); WHITE BLOOD COUNT (AUTO) 8.4 K/uL (4.3-11.0)
[2019-03-27 07:55] LABS: CALCIUM, SERUM 8.4 mg/dL (8.5-10.1); CREATININE 0.7 mg/dL (0.6-1.3); POTASSIUM 3.7 mmol/L (3.5-5.1)
[2019-03-27 08:00] VITALS: BP 130/68
--- NOTE | 2019-03-27 08:00 | NUR ---
MS RN NOTES PT RECEIVED IN THE BED, ALERT AWAKE WITH CONFUSION. TRYING TO REMOVE ALL LINES. HE HAS BILATERAL RESTRAINS , CIRCULATION CHECKED.PT HAS GT FEEDING AND TOLERATING WELL. NO RESIDUAL NOTED. HOB ELEVATED. RT UPPER ARM MIDLINE IN PLACED AND FLUSHED WELL WITH F/C TO GRAVITY YELLOW CLOUDY URINE. BED LOCKED AT LOWEST POSITION AND WILL CONTINUE TO MONITOR SAFETY OBSERVED FOR SEIZURE PRECLUSION CALL LIGHT IN REACH
[2019-03-27] MEDS: FAMOTIDINE (20 MG) 20 MG TABLET NG SCH (08:53)
[2019-03-27] MEDS: LEVETIRACETAM SOL (5 ML) 100 MG/ML UDC NG SCH (08:54)
[2019-03-27] MEDS: JEVITY 1.2 CAL 1,000 ML BOTTLE GT PRN (09:28)
--- NOTE | 2019-03-27 10:23 | NUR ---
MS RN NOTE SEEM BY DR ERICKA WIN TO D\C IVF
--- NOTE | 2019-03-27 12:00 | NUR ---
MS RN NOTES ALL NEEDS ATTENDED CONTINUES GTUBE FEEDING. PT NOT IN DISTRESS.
--- NOTE | 2019-03-27 15:00 | NUR ---
MS RN NOTES PER DR ERICKA WIN TO TRANSFER TO SNF REPORT GIVEN TO NING WILL WAIT FOR AMBULANCE. PER DR ERICKA WIN TO LEAVE THE MIDLINE BEFORE TRANSFERRING TO SNF.
--- NOTE | 2019-03-27 16:00 | NUR ---
MS RN NOTES AMBULANCE ARRIVED. MIDLINE IN PLACE.REPORT GIVEN AND WENT TO SNF WITH STABLE CONDITION.BUFFING AND SUEDING MACHINE OPERATOR CALLED SISTER TO INFORM ABOUT THE TRANSFER.
== END 2019-03-27 16:15 | DRG 53 ==
LOC: ER 16:43 → MEDSG1 19:45
PROVIDERS: ADMIT Student in an Organized Health Care Education/Training Program; ATTEND Student in an Organized Health Care Education/Training Program
PROC: 0DH63UZ Insertion of Feeding Device into Stomach, Percutaneous Approach (ICD-10-PCS; principal; 2019-03-26)
DX: G40.909 Epilepsy, unspecified, not intractable, without status epilepticus (principal); D69.6 Thrombocytopenia, unspecified; R13.10 Dysphagia, unspecified; E44.0 Moderate protein-calorie malnutrition; G62.9 Polyneuropathy, unspecified; E87.6 Hypokalemia; Z68.33 Body mass index [BMI] 33.0-33.9, adult; R74.0 Nonspecific elevation of levels of transaminase and lactic acid dehydrogenase [LDH]; D72.829 Elevated white blood cell count, unspecified; I70.90 Unspecified atherosclerosis; R62.7 Adult failure to thrive
CPT/HCPCS: 36415; 36569; 43246; 70450-TC; 71045-TC; 76700-TC; 80048-TC; 80053-TC; 80061-TC; 80076-TC; 80177; 80185-TC; 80305; 81000-TC; 82140-TC; 82962-TC; 83605-TC; 83735-TC; 84100-TC; 84443-TC; 84484-TC; 85025-TC; 85730-TC; 87040-TC; 87081-TC; 87086-TC; 92526; 92611-TC; 93971-TC; 94799-TC; 95819-TC; A4349; G0378; G0480; J0690; J1165; J1953; J2060; J2704; J3480; J3490; J7030